=== PATIENT | male | born 1980 | race Caucasian/White ===

== ENCOUNTER 2019-03-28 11:50 | Inpatient (IN) ==
[2019-03-28] MEDS ORDERED: ROCURONIUM 100 MG/10 ML VIAL IV ONE ×2 (11:57→13:23)
[2019-03-28] MEDS ORDERED: ETOMIDATE 20 MG/10 ML VIAL IV ONE ×2 (11:57→13:23)
[2019-03-28] MEDS ORDERED: SODIUM CHLORIDE 0.9% 1,000 ML IV STA (12:03)
[2019-03-28 12:18] LABS: ABG Base Excess -6.9 MMOL/L (-2.5-2.5); ABG HCO3 18.8 MMOL/L (20-26); ABG Oxygen Saturation 91.3 % (95-100); ABG PCO2 43.9 MM HG (35-48); ABG PH 7.269 (7.35-7.45); ABG TCO2 17.7 MMOL/L (23-27)
[2019-03-28 12:24] LABS: Basophils # 0.1 10*3/uL (0.0-0.2); Basophils % 0.6 % (0.0-0.8); Eosinophils # 0.4 10*3/uL (0.0-0.87); Eosinophils % 1.9 % (0.00-10.9); Hematocrit 43.7 VOL% (42.0-52.0); Hemoglobin 14.1 GM/DL (14.0-18.0); Lymphocytes % 20.8 % (21.2-54.2); Mean Corpuscular HGB Conc 32.3 GM/DL (32-36); Mean Corpuscular Volume 98.9 FL (87-102); Mean Platelet Volume 9.3 FL (9.6-12.0); Monocytes % 5.7 % (1.7-12.7); Platelet Count 368 T/CUMM (130-400); Red Blood Count 4.42 MC/CUMM (3.8-5.5); Red Cell Distribution Width 12.1 % (9.3-17.3); White Blood Count 19.3 T/CUMM (4-12)
[2019-03-28 12:30] LABS: PT Patient Result 10.7 SECS (9.6-12.2); Partial Thromboplastin Time 25.9 SECS (20.8-36.0)
[2019-03-28] MEDS ORDERED: AMIODARONE INJ 450 MG in DEXTROSE 5% 241 ML IV SCH ×2 (12:30→20:30)
[2019-03-28] MEDS ORDERED: HEPARIN 5,000 UNIT/1 ML VIAL IV STA (12:43)
[2019-03-28] MEDS ORDERED: HEPARIN 5,000 UNIT/1 ML VIAL ONE ×2 (12:43→13:05)
[2019-03-28] MEDS ORDERED: LIDOCAINE 1% 20 ML VIAL ONE (12:44)
[2019-03-28 12:45] LABS: Alanine Aminotransferase 68 U/L (16-61); Albumin 3.7 G/DL (3.4-5.0); Alkaline Phosphatase 89 U/L (45-117); Aspartate Amino Transferase 94 U/L (0-37); Bilirubin,Total < 0.39 MG/DL (0.2-1.0); Blood Urea Nitrogen 10 MG/DL (7-18); Calcium 8.5 MG/DL (8.5-10.1); Estimated Glom Filtration Rate 82 ML/MIN; Glucose 281 MG/DL (74-106); Osmolality,Calculated 285.5 MOS/KG (273-304)
[2019-03-28] MEDS ORDERED: TIROFIBAN 5,000 MCG/100 ML PREMIX IV SCH (13:18)
[2019-03-28] MEDS ORDERED: FUROSEMIDE 40 MG/4 ML VIAL ONE (13:25)
[2019-03-28 13:27] LABS: Apearance,Urine CLEAR (Clear); Bacteria,Urine Occasional /HPF (Few); Bilirubin,Urine Negative (Negative); Blood, Urine Negative (Negative); Glucose,Urine (UA) >=500 mg/dL (Negative); Hyaline Casts,Urine 13 /LPF (0-3); Ketones,Urine Negative (Negative); Mucus,Urine Occasional /LPF (Occasional); Nitrite,Urine Negative (Negative); Protein,Urine 30 MG/DL; RBC,Urine 1 /HPF (0-4); Sperm,Urine Occasional /HPF (Negative); Squamous Epithelial Cell,Urine Occasional /HPF (0-10); Urine Color Yellow (Yellow); Urine Specific Gravity 1.014 (1.001-1.035); Urine Urobilinogen < 2.0 EU/DL (0.2-1.0); WBC,Urine 3 /HPF (0-6)
[2019-03-28 13:30] LABS: Barbiturates Screen,Urine Negative (Negative); Benzodiazepines Screen,Urine Positive (Negative); Cannabinoid Screen,Urine Negative (Negative); Opiate Screen,Urine Negative (Negative); Phencyclidine Screen,Urine Negative (Negative)
[2019-03-28] MEDS ORDERED: NITROGLYCERIN SL 0.4 MG TABLET SL PRN (13:43)
[2019-03-28] MEDS ORDERED: HYDROmorphone 2 MG/1 ML VIAL IV PRN (13:43)
[2019-03-28] MEDS ORDERED: ZALEPLON 5 MG CAPSULE PO PRN (13:43)
[2019-03-28] MEDS ORDERED: ONDANSETRON 4 MG/2 ML VIAL IV PRN (13:43)
[2019-03-28] MEDS ORDERED: ASPIRIN 325 MG TABLET ONE (13:49)
[2019-03-28] MEDS ORDERED: TICAGRELOR 90 MG TABLET ONE (13:49)
[2019-03-28] MEDS ORDERED: TICAGRELOR 90 MG TABLET PO ONE (14:33)
[2019-03-28] MEDS ORDERED: ASPIRIN 325 MG TABLET PO ONE (14:33)
[2019-03-28] MEDS ORDERED: MIDAZOLAM 2 MG/2 ML VIAL IV ONE (15:12)
[2019-03-28 15:14] LABS: INR 1.1
[2019-03-28] MEDS ORDERED: MIDAZOLAM 2 MG/2 ML VIAL ONE (15:15)
[2019-03-28 15:23] LABS: Partial Thromboplastin Time 88.8 SECS (20.8-36.0)
[2019-03-28 15:42] LABS: CKMB % 15.1 %
[2019-03-28 15:44] LABS: Troponin I 83.3 NG/ML (0.00-0.045)
[2019-03-28] MEDS: MIDAZOLAM 100 MG in SODIUM CHLORIDE 0.9% 80 ML IV PRN (15:54)
[2019-03-28] MEDS ORDERED: SODIUM CHLORIDE 0.9% 1,000 ML IV ONE ×2 (16:51→22:21)
[2019-03-28] MEDS: PHENYLEPHRINE DRIP 40 MG/250 ML PREMIX IV PRN (18:26)
[2019-03-28] MEDS ORDERED: INFLUENZA VIRUS VACCINE 0.5 ML SYRINGE IM ONE (19:54)
[2019-03-28] MEDS: TICAGRELOR 90 MG TABLET PO SCH (20:48)
[2019-03-28] MEDS ORDERED: LACTULOSE 20 GM/30 ML UDCUP NG ONE (22:08)
[2019-03-28] MEDS ORDERED: INSULIN REGULAR 100 UNIT/ML IV SCH (22:30)
[2019-03-28] MEDS: SODIUM BICARB INJ 50 MEQ in DEXTROSE 5% 1,000 ML IV SCH (22:40)
[2019-03-28] MEDS: MEROPENEM 1,000 MG in SODIUM CHLORIDE 0.9% 100 ML IV SCH (22:40)
[2019-03-29] MEDS: INSULIN REGULAR 100 UNIT/ML SUBCUT SCH ×4 (00:07→17:34)
[2019-03-29 00:59] LABS: ABG Base Excess -4.2 MMOL/L (-2.5-2.5); ABG HCO3 20.9 MMOL/L (20-26); ABG Oxygen Saturation 96.7 % (95-100); ABG PCO2 28.4 MM HG (35-48); ABG PH 7.428 (7.35-7.45); ABG PO2 80.4 MM HG (80-95); ABG TCO2 16.4 MMOL/L (23-27); Allen Test Positive; Pt O2 Delivery Device Ventilator
[2019-03-29 02:43] LABS: Basophils % 0.2 % (0.0-0.8); Hematocrit 38.1 VOL% (42.0-52.0); Hemoglobin 12.6 GM/DL (14.0-18.0); Immature Granulocytes % 0.6 %; Immature Granulocytes Absolute 0.13 #; Lymphocytes # 1.7 10*3/uL (1.4-4.0); Lymphocytes % 7.5 % (21.2-54.2); Mean Corpuscular HGB Conc 33.1 GM/DL (32-36); Mean Corpuscular Volume 96.2 FL (87-102); Mean Platelet Volume 9.4 FL (9.6-12.0); Monocytes % 7.6 % (1.7-12.7); Neutrophils % 84.1 % (38.7-73.9); Platelet Count 349 T/CUMM (130-400); Red Blood Count 3.96 MC/CUMM (3.8-5.5); Red Cell Distribution Width 12.3 % (9.3-17.3); White Blood Count 23.1 T/CUMM (4-12)
[2019-03-29 03:01] LABS: Albumin 2.9 G/DL (3.4-5.0); Bilirubin,Total 0.5 MG/DL (0.2-1.0); Calcium 7.4 MG/DL (8.5-10.1); Osmolality,Calculated 289.8 MOS/KG (273-304)
[2019-03-29 03:02] LABS: Risk Ratio 4.75; VLDL CHOLESTEROL 26.8 MG/DL
[2019-03-29] MEDS: ACETAMINOPHEN 325 MG TABLET PO PRN (03:21)
[2019-03-29 03:22] LABS: CKMB % 10.9 %
[2019-03-29 03:30] LABS: Troponin I > 200.000 NG/ML (0.00-0.045)
[2019-03-29 03:31] LABS: CKMB % 10.4 %; Troponin I > 200.000 NG/ML (0.00-0.045)
[2019-03-29 04:02] LABS: ABG Base Excess -3.7 MMOL/L (-2.5-2.5); ABG PCO2 27.8 MM HG (35-48); ABG PH 7.452 (7.35-7.45); ABG TCO2 19.8 MMOL/L (23-27); Allen Test Positive; Pt O2 Delivery Device Ventilator
[2019-03-29] MEDS: PHENYLEPHRINE DRIP 40 MG/250 ML PREMIX IV PRN ×2 (04:31→14:48)
[2019-03-29 04:41] LABS: Lymphocytes 7 % (20-55); Platelet Estimate Normal; Segmented Neutrophils 90 % (50-85); Total Cells Counted 100
[2019-03-29] MEDS: MEROPENEM 1,000 MG in SODIUM CHLORIDE 0.9% 100 ML IV SCH ×3 (06:00→21:28)
[2019-03-29] MEDS: SODIUM BICARB INJ 50 MEQ in DEXTROSE 5% 1,000 ML IV SCH ×2 (07:53→17:32)
[2019-03-29] MEDS: MIDAZOLAM 100 MG in SODIUM CHLORIDE 0.9% 80 ML IV PRN ×2 (07:59→22:43)
[2019-03-29] MEDS ORDERED: ASPIRIN EC 81 MG TABLET PO SCH (09:00)
[2019-03-29] MEDS: ROSUVASTATIN 20 MG TABLET PO SCH (09:04)
[2019-03-29] MEDS: ENOXAPARIN 40 MG/0.4 ML SYRINGE SUBCUT SCH (09:04)
[2019-03-29] MEDS: TICAGRELOR 90 MG TABLET PO SCH ×2 (09:04→20:02)
[2019-03-29 11:47] LABS: ABG Base Excess -0.5 MMOL/L (-2.5-2.5); ABG PCO2 31.7 MM HG (35-48); ABG PO2 97.2 MM HG (80-95); ABG TCO2 19.9 MMOL/L (23-27); Allen Test Positive; Pt O2 Delivery Device Ventilator
[2019-03-29] MEDS: NICOTINE 14 MG/24 HR PATCH TRANSDERM SCH (12:22)
[2019-03-29] MEDS: PANTOPRAZOLE 40 MG VIAL IV SCH (12:23)
[2019-03-29] MEDS: LACTULOSE 20 GM/30 ML UDCUP NG SCH ×2 (12:23→20:01)
[2019-03-29] MEDS: VANCOMYCIN INJ 1,500 MG in SODIUM CHLORIDE 0.9% 500 ML IV SCH (13:27)
[2019-03-29] MEDS ORDERED: FUROSEMIDE 40 MG/4 ML VIAL IV ONE (16:25)
[2019-03-29] MEDS ORDERED: ALBUTEROL/IPRATROPIUM 3 ML NEB RESP TX ONE (16:25)
[2019-03-29 18:12] LABS: ABG HCO3 26.2 MMOL/L (20-26); ABG Oxygen Saturation 97.9 % (95-100); ABG PCO2 35.8 MM HG (35-48); ABG PH 7.461 (7.35-7.45); ABG PO2 99.2 MM HG (80-95); ABG TCO2 22.4 MMOL/L (23-27); Allen Test Positive; Pt O2 Delivery Device Ventilator
[2019-03-29] MEDS: methylPREDNISolone SOD SUC 40 MG/1 ML VIAL IV SCH (20:01)
[2019-03-29] MEDS: BUDESONIDE 0.5 MG/2 ML NEB RESP TX SCH (20:10)
[2019-03-30] MEDS: INSULIN REGULAR 100 UNIT/ML SUBCUT SCH ×5 (00:04→23:30)
[2019-03-30] MEDS: VANCOMYCIN INJ 1,500 MG in SODIUM CHLORIDE 0.9% 500 ML IV SCH ×2 (01:26→13:44)
[2019-03-30 03:09] LABS: Allen Test Positive; Pt O2 Delivery Device Ventilator
[2019-03-30 03:11] LABS: ABG Base Excess 1.3 MMOL/L (-2.5-2.5); ABG HCO3 25.4 MMOL/L (20-26); ABG Oxygen Saturation 85.3 % (95-100); ABG PCO2 47.5 MM HG (35-48); ABG PH 7.366 (7.35-7.45); ABG PO2 51.6 MM HG (80-95); ABG TCO2 24.7 MMOL/L (23-27)
[2019-03-30] MEDS: SODIUM BICARB INJ 50 MEQ in DEXTROSE 5% 1,000 ML IV SCH ×2 (04:57→16:08)
[2019-03-30 05:03] LABS: Basophils % 0.1 % (0.0-0.8); Hematocrit 31.9 VOL% (42.0-52.0); Hemoglobin 10.8 GM/DL (14.0-18.0); Immature Granulocytes % 0.9 %; Lymphocytes # 0.8 10*3/uL (1.4-4.0); Lymphocytes % 3.9 % (21.2-54.2); Mean Corpuscular HGB Conc 33.9 GM/DL (32-36); Mean Corpuscular Volume 95.5 FL (87-102); Mean Platelet Volume 9.9 FL (9.6-12.0); Monocytes % 5.1 % (1.7-12.7); Platelet Count 266 T/CUMM (130-400); Red Blood Count 3.34 MC/CUMM (3.8-5.5); Red Cell Distribution Width 12.3 % (9.3-17.3); White Blood Count 21.1 T/CUMM (4-12)
[2019-03-30 05:25] LABS: Albumin 2.7 G/DL (3.4-5.0); Bilirubin,Total 0.5 MG/DL (0.2-1.0); Calcium 7.5 MG/DL (8.5-10.1); Osmolality,Calculated 279.5 MOS/KG (273-304); Total Protein 5.9 G/DL (6.4-8.3)
[2019-03-30 05:40] LABS: Band Neutrophils 1 % (0-10); Lymphocytes 5 % (20-55); Platelet Estimate Normal; Segmented Neutrophils 89 % (50-85); Total Cells Counted 100
[2019-03-30] MEDS: MEROPENEM 1,000 MG in SODIUM CHLORIDE 0.9% 100 ML IV SCH (07:11)
[2019-03-30] MEDS: BUDESONIDE 0.5 MG/2 ML NEB RESP TX SCH ×2 (07:15→19:40)
[2019-03-30] MEDS: methylPREDNISolone SOD SUC 40 MG/1 ML VIAL IV SCH ×2 (08:57→20:24)
[2019-03-30] MEDS: ROSUVASTATIN 20 MG TABLET PO SCH (08:57)
[2019-03-30] MEDS: ENOXAPARIN 40 MG/0.4 ML SYRINGE SUBCUT SCH (08:57)
[2019-03-30] MEDS: LACTULOSE 20 GM/30 ML UDCUP NG SCH ×3 (08:57→21:23)
[2019-03-30] MEDS: ASPIRIN CHEW 81 MG TABLET PO SCH (08:58)
[2019-03-30] MEDS: NICOTINE 14 MG/24 HR PATCH TRANSDERM SCH (08:58)
[2019-03-30] MEDS: TICAGRELOR 90 MG TABLET PO SCH ×2 (08:58→20:24)
[2019-03-30] MEDS: PANTOPRAZOLE 40 MG VIAL IV SCH (08:59)
[2019-03-30] MEDS: PHENYLEPHRINE DRIP 40 MG/250 ML PREMIX IV PRN (10:43)
[2019-03-30] MEDS: MIDAZOLAM 100 MG in SODIUM CHLORIDE 0.9% 80 ML IV PRN (12:38)
[2019-03-30] MEDS: MEROPENEM 500 MG in SODIUM CHLORIDE 0.9% 100 ML IV SCH ×3 (13:43→23:30)
[2019-03-30 14:56] LABS: ABG Base Excess 1.2 MMOL/L (-2.5-2.5); ABG HCO3 25.5 MMOL/L (20-26); ABG Oxygen Saturation 99.5 % (95-100); ABG PCO2 44.2 MM HG (35-48); ABG PH 7.387 (7.35-7.45); ABG TCO2 23.8 MMOL/L (23-27); Allen Test Positive; Pt O2 Delivery Device Ventilator
[2019-03-30 16:31] LABS: ABG Base Excess 1.6 MMOL/L (-2.5-2.5); ABG HCO3 25.7 MMOL/L (20-26); ABG Oxygen Saturation 90.8 % (95-100); ABG PCO2 44.2 MM HG (35-48); ABG PH 7.392 (7.35-7.45); ABG PO2 61.4 MM HG (80-95); ABG TCO2 24.2 MMOL/L (23-27); Allen Test Positive; Pt O2 Delivery Device Ventilator
[2019-03-30] MEDS: ACETYLCYSTEINE 20% 800 MG/4 ML VIAL RESP TX SCH (19:40)
[2019-03-31] MEDS: VANCOMYCIN INJ 1,500 MG in SODIUM CHLORIDE 0.9% 500 ML IV SCH ×2 (01:10→13:50)
[2019-03-31] MEDS: ACETYLCYSTEINE 20% 800 MG/4 ML VIAL RESP TX SCH ×4 (01:35→20:11)
[2019-03-31] MEDS: ALBUTEROL/IPRATROPIUM 3 ML NEB RESP TX PRN ×2 (01:35→13:39)
[2019-03-31] MEDS: SODIUM BICARB INJ 50 MEQ in DEXTROSE 5% 1,000 ML IV SCH (02:06)
[2019-03-31] MEDS: MIDAZOLAM 100 MG in SODIUM CHLORIDE 0.9% 80 ML IV PRN ×2 (02:26→17:05)
[2019-03-31 03:05] LABS: ABG Base Excess 4.2 MMOL/L (-2.5-2.5); ABG HCO3 28.2 MMOL/L (20-26); ABG Oxygen Saturation 95.7 % (95-100); ABG PCO2 41.5 MM HG (35-48); ABG PH 7.447 (7.35-7.45); ABG PO2 76.7 MM HG (80-95); ABG TCO2 25.6 MMOL/L (23-27); Allen Test Positive; Pt O2 Delivery Device Ventilator
[2019-03-31] MEDS: MEROPENEM 500 MG in SODIUM CHLORIDE 0.9% 100 ML IV SCH ×3 (05:10→18:39)
[2019-03-31 05:15] LABS: Basophils % 0.1 % (0.0-0.8); Hematocrit 31.6 VOL% (42.0-52.0); Hemoglobin 10.4 GM/DL (14.0-18.0); Immature Granulocytes % 0.9 %; Immature Granulocytes Absolute 0.19 #; Lymphocytes # 0.8 10*3/uL (1.4-4.0); Lymphocytes % 3.7 % (21.2-54.2); Mean Corpuscular HGB Conc 32.9 GM/DL (32-36); Mean Corpuscular Volume 96.6 FL (87-102); Mean Platelet Volume 9.9 FL (9.6-12.0); Neutrophils % 90.3 % (38.7-73.9); Platelet Count 264 T/CUMM (130-400); Red Blood Count 3.27 MC/CUMM (3.8-5.5); White Blood Count 22.2 T/CUMM (4-12)
[2019-03-31 05:33] LABS: Albumin 2.6 G/DL (3.4-5.0); Bilirubin,Total 0.7 MG/DL (0.2-1.0); Calcium 8.4 MG/DL (8.5-10.1); Osmolality,Calculated 290.7 MOS/KG (273-304); Total Protein 6.1 G/DL (6.4-8.3)
[2019-03-31 05:37] LABS: Hypochromasia 1+; Lymphocytes 3 % (20-55); Platelet Estimate Adequate; Segmented Neutrophils 93 % (50-85); Total Cells Counted 100
[2019-03-31] MEDS: INSULIN REGULAR 100 UNIT/ML SUBCUT SCH ×3 (05:50→18:39)
[2019-03-31] MEDS: BUDESONIDE 0.5 MG/2 ML NEB RESP TX SCH ×2 (07:32→20:11)
[2019-03-31] MEDS: methylPREDNISolone SOD SUC 40 MG/1 ML VIAL IV SCH (08:43)
[2019-03-31] MEDS: LACTULOSE 20 GM/30 ML UDCUP NG SCH ×4 (09:08→20:42)
[2019-03-31] MEDS: ROSUVASTATIN 20 MG TABLET PO SCH (09:10)
[2019-03-31] MEDS: TICAGRELOR 90 MG TABLET PO SCH (09:10)
[2019-03-31] MEDS: ASPIRIN CHEW 81 MG TABLET PO SCH (09:10)
[2019-03-31] MEDS: ENOXAPARIN 40 MG/0.4 ML SYRINGE SUBCUT SCH (09:11)
[2019-03-31] MEDS: NICOTINE 14 MG/24 HR PATCH TRANSDERM SCH (09:11)
[2019-03-31] MEDS: PANTOPRAZOLE 40 MG VIAL IV SCH (09:16)
[2019-03-31] MEDS: DEXMEDETOMIDINE 200 MCG in SODIUM CHLORIDE 0.9% 48 ML IV PRN ×2 (09:28→13:10)
[2019-03-31] MEDS: DEXMEDETOMIDINE 400 MCG in SODIUM CHLORIDE 0.9% 96 ML IV PRN (16:25)
[2019-03-31] MEDS: VANCOMYCIN INJ 1,250 MG in SODIUM CHLORIDE 0.9% 250 ML IV SCH (20:42)
[2019-03-31] MEDS: PHENYLEPHRINE DRIP 40 MG/250 ML PREMIX IV PRN (20:58)
[2019-04-01] MEDS: ACETYLCYSTEINE 20% 800 MG/4 ML VIAL RESP TX SCH ×4 (00:17→21:02)
[2019-04-01] MEDS: DEXMEDETOMIDINE 400 MCG in SODIUM CHLORIDE 0.9% 96 ML IV PRN ×3 (00:24→20:40)
[2019-04-01] MEDS: MEROPENEM 500 MG in SODIUM CHLORIDE 0.9% 100 ML IV SCH (01:00)
[2019-04-01] MEDS: LEVOFLOXACIN INJ 500 MG in PREMIX 1 EACH IV SCH (01:40)
[2019-04-01] MEDS: INSULIN REGULAR 100 UNIT/ML SUBCUT SCH ×4 (03:31→17:15)
[2019-04-01] MEDS: MIDAZOLAM 100 MG in SODIUM CHLORIDE 0.9% 80 ML IV PRN ×2 (04:20→17:11)
[2019-04-01 04:33] LABS: ABG Base Excess 4.9 MMOL/L (-2.5-2.5); ABG HCO3 28.8 MMOL/L (20-26); ABG Oxygen Saturation 98.7 % (95-100); ABG PH 7.492 (7.35-7.45); ABG TCO2 25.4 MMOL/L (23-27); Allen Test Positive; Pt O2 Delivery Device Ventilator
[2019-04-01] MEDS: ACETAMINOPHEN 325 MG TABLET PO PRN (05:48)
[2019-04-01] MEDS: VANCOMYCIN INJ 1,250 MG in SODIUM CHLORIDE 0.9% 250 ML IV SCH (05:56)
[2019-04-01 06:23] LABS: Basophils % 0.2 % (0.0-0.8); Eosinophils # 0.1 10*3/uL (0.0-0.87); Eosinophils % 0.9 % (0.00-10.9); Hematocrit 30.6 VOL% (42.0-52.0); Hemoglobin 10.2 GM/DL (14.0-18.0); Immature Granulocytes % 0.6 %; Lymphocytes # 1.8 10*3/uL (1.4-4.0); Mean Corpuscular HGB Conc 33.3 GM/DL (32-36); Mean Corpuscular Volume 94.7 FL (87-102); Mean Platelet Volume 9.8 FL (9.6-12.0); Monocytes % 8.5 % (1.7-12.7); Neutrophils % 78.8 % (38.7-73.9); Platelet Count 289 T/CUMM (130-400); Red Blood Count 3.23 MC/CUMM (3.8-5.5); Red Cell Distribution Width 12.2 % (9.3-17.3); White Blood Count 16.4 T/CUMM (4-12)
[2019-04-01 06:52] LABS: Albumin 2.4 G/DL (3.4-5.0); Bilirubin,Total 0.8 MG/DL (0.2-1.0); Calcium 7.9 MG/DL (8.5-10.1); Osmolality,Calculated 296.3 MOS/KG (273-304); Total Protein 5.8 G/DL (6.4-8.3)
[2019-04-01] MEDS: BUDESONIDE 0.5 MG/2 ML NEB RESP TX SCH ×2 (07:22→21:02)
[2019-04-01 09:50] LABS: ABG Base Excess 4.9 MMOL/L (-2.5-2.5); ABG HCO3 28.8 MMOL/L (20-26); ABG Oxygen Saturation 97.9 % (95-100); ABG PCO2 37.4 MM HG (35-48); ABG PH 7.488 (7.35-7.45); ABG PO2 95.8 MM HG (80-95); ABG TCO2 25.2 MMOL/L (23-27)
[2019-04-01 09:52] LABS: Allen Test Positive; Pt O2 Delivery Device Ventilator
[2019-04-01] MEDS: PANTOPRAZOLE 40 MG VIAL IV SCH (11:30)
[2019-04-01] MEDS: ROSUVASTATIN 20 MG TABLET PO SCH (11:30)
[2019-04-01] MEDS: LACTULOSE 20 GM/30 ML UDCUP NG SCH ×4 (11:31→20:19)
[2019-04-01] MEDS ORDERED: ROCURONIUM 100 MG/10 ML VIAL IV ONE ×2 (13:30→13:32)
[2019-04-01] MEDS: ALBUTEROL/IPRATROPIUM 3 ML NEB RESP TX PRN (14:44)
[2019-04-01] MEDS: POTASSIUM CHLORIDE 20 MEQ/15 ML UDCUP PER TUBE PRN ×4 (16:50→22:29)
[2019-04-01] MEDS: TICAGRELOR 90 MG TABLET PO SCH (20:20)
[2019-04-02] MEDS: LEVOFLOXACIN INJ 500 MG in PREMIX 1 EACH IV SCH (00:02)
[2019-04-02] MEDS: INSULIN REGULAR 100 UNIT/ML SUBCUT SCH ×4 (00:04→17:40)
[2019-04-02] MEDS: ACETYLCYSTEINE 20% 800 MG/4 ML VIAL RESP TX SCH ×4 (01:31→20:43)
[2019-04-02] MEDS: DEXMEDETOMIDINE 400 MCG in SODIUM CHLORIDE 0.9% 96 ML IV PRN ×3 (02:30→17:05)
[2019-04-02 04:15] LABS: ABG HCO3 27.1 MMOL/L (20-26); ABG Oxygen Saturation 98.4 % (95-100); ABG PCO2 35.5 MM HG (35-48); Allen Test Positive; Pt O2 Delivery Device Ventilator
[2019-04-02 05:16] LABS: Basophils % 0.4 % (0.0-0.8); Eosinophils # 0.3 10*3/uL (0.0-0.87); Eosinophils % 3.1 % (0.00-10.9); Hemoglobin 9.6 GM/DL (14.0-18.0); Immature Granulocytes % 0.5 %; Immature Granulocytes Absolute 0.06 #; Lymphocytes # 1.5 10*3/uL (1.4-4.0); Lymphocytes % 13.4 % (21.2-54.2); Mean Corpuscular HGB Conc 33.1 GM/DL (32-36); Mean Corpuscular Volume 96.3 FL (87-102); Mean Platelet Volume 9.8 FL (9.6-12.0); Monocytes % 8.9 % (1.7-12.7); Neutrophils % 73.7 % (38.7-73.9); Platelet Count 277 T/CUMM (130-400); Red Blood Count 3.01 MC/CUMM (3.8-5.5); Red Cell Distribution Width 12.2 % (9.3-17.3)
[2019-04-02 05:42] LABS: Calcium 8.2 MG/DL (8.5-10.1); Osmolality,Calculated 290.8 MOS/KG (273-304)
[2019-04-02] MEDS: POTASSIUM CHLORIDE 20 MEQ/15 ML UDCUP PER TUBE PRN ×2 (06:00→08:05)
[2019-04-02] MEDS: MIDAZOLAM 100 MG in SODIUM CHLORIDE 0.9% 80 ML IV PRN (06:39)
[2019-04-02] MEDS: BUDESONIDE 0.5 MG/2 ML NEB RESP TX SCH ×2 (07:48→20:43)
[2019-04-02] MEDS: ENOXAPARIN 40 MG/0.4 ML SYRINGE SUBCUT SCH (08:04)
[2019-04-02] MEDS: LACTULOSE 20 GM/30 ML UDCUP NG SCH ×4 (08:04→21:04)
[2019-04-02] MEDS: ROSUVASTATIN 20 MG TABLET PO SCH (08:04)
[2019-04-02] MEDS: ASPIRIN CHEW 81 MG TABLET PO SCH (08:04)
[2019-04-02] MEDS: TICAGRELOR 90 MG TABLET PO SCH ×2 (08:04→21:04)
[2019-04-02] MEDS: PANTOPRAZOLE 40 MG VIAL IV SCH (08:05)
[2019-04-02] MEDS ORDERED: HALOPERIDOL 5 MG/ML AMP IV ONE (09:31)
[2019-04-02] MEDS ORDERED: THIAMINE 200 MG/2 ML VIAL IV ONE (14:17)
[2019-04-02] MEDS ORDERED: chlordiazePOXIDE 25 MG CAPSULE PO PRN (14:21)
[2019-04-02] MEDS ORDERED: LORazepam 2 MG/1 ML VIAL IV PRN (14:21)
[2019-04-02] MEDS ORDERED: THIAMINE INJ 500 MG in SODIUM CHLORIDE 0.9% 100 ML IV ONE (15:00)
[2019-04-02] MEDS: FOLIC ACID 1 MG TABLET PO SCH (16:41)
[2019-04-02] MEDS: MULTIVITAMIN (CENTRUM) TABLET PO SCH (16:41)
[2019-04-02] MEDS: NICOTINE 14 MG/24 HR PATCH TRANSDERM SCH (16:41)
[2019-04-02] MEDS: QUEtiapine 25 MG TABLET PO SCH (21:04)
[2019-04-02] MEDS: ACETAMINOPHEN 325 MG TABLET PO PRN (21:35)
[2019-04-03] MEDS: MIDAZOLAM 100 MG in SODIUM CHLORIDE 0.9% 80 ML IV PRN ×3 (00:04→23:43)
[2019-04-03] MEDS: DEXMEDETOMIDINE 400 MCG in SODIUM CHLORIDE 0.9% 96 ML IV PRN ×4 (00:21→23:19)
[2019-04-03] MEDS: INSULIN REGULAR 100 UNIT/ML SUBCUT SCH ×4 (00:56→19:01)
[2019-04-03] MEDS: LEVOFLOXACIN INJ 500 MG in PREMIX 1 EACH IV SCH (01:00)
[2019-04-03] MEDS: ACETYLCYSTEINE 20% 800 MG/4 ML VIAL RESP TX SCH ×4 (01:35→19:31)
[2019-04-03 04:14] LABS: ABG Base Excess 1.6 MMOL/L (-2.5-2.5); ABG HCO3 25.8 MMOL/L (20-26); ABG Oxygen Saturation 95.6 % (95-100); ABG PCO2 35.4 MM HG (35-48); ABG PO2 74.3 MM HG (80-95); ABG TCO2 22.3 MMOL/L (23-27); Pt O2 Delivery Device Ventilator
[2019-04-03 05:58] LABS: Basophils # 0.1 10*3/uL (0.0-0.2); Basophils % 0.4 % (0.0-0.8); Eosinophils # 0.7 10*3/uL (0.0-0.87); Eosinophils % 5.1 % (0.00-10.9); Hemoglobin 10.1 GM/DL (14.0-18.0); Immature Granulocytes % 0.6 %; Immature Granulocytes Absolute 0.09 #; Lymphocytes # 2.2 10*3/uL (1.4-4.0); Lymphocytes % 15.3 % (21.2-54.2); Mean Corpuscular HGB Conc 32.6 GM/DL (32-36); Mean Corpuscular Volume 96.9 FL (87-102); Monocytes % 7.1 % (1.7-12.7); Neutrophils % 71.5 % (38.7-73.9); Platelet Count 300 T/CUMM (130-400); Red Cell Distribution Width 12.4 % (9.3-17.3); White Blood Count 14.1 T/CUMM (4-12)
[2019-04-03 06:19] LABS: Calcium 8.5 MG/DL (8.5-10.1); Osmolality,Calculated 291.8 MOS/KG (273-304)
[2019-04-03 06:24] LABS: Prealbumin 12.8 MG/DL (20-40)
[2019-04-03] MEDS: POTASSIUM CHLORIDE 20 MEQ/15 ML UDCUP PER TUBE PRN (06:27)
[2019-04-03] MEDS: BUDESONIDE 0.5 MG/2 ML NEB RESP TX SCH ×2 (08:12→19:31)
[2019-04-03] MEDS: FOLIC ACID 1 MG TABLET PO SCH (08:31)
[2019-04-03] MEDS: NICOTINE 14 MG/24 HR PATCH TRANSDERM SCH (08:31)
[2019-04-03] MEDS: TICAGRELOR 90 MG TABLET PO SCH ×2 (08:32→21:24)
[2019-04-03] MEDS: MULTIVITAMIN (CENTRUM) TABLET PO SCH (08:32)
[2019-04-03] MEDS: ROSUVASTATIN 20 MG TABLET PO SCH (08:32)
[2019-04-03] MEDS: THIAMINE 100 MG TABLET PO SCH (08:32)
[2019-04-03] MEDS: ASPIRIN CHEW 81 MG TABLET PO SCH (08:33)
[2019-04-03] MEDS: LACTULOSE 20 GM/30 ML UDCUP NG SCH ×4 (08:33→21:25)
[2019-04-03] MEDS: ENOXAPARIN 40 MG/0.4 ML SYRINGE SUBCUT SCH (08:33)
[2019-04-03] MEDS: PANTOPRAZOLE 40 MG VIAL IV SCH (08:34)
[2019-04-03] MEDS: QUEtiapine 25 MG TABLET PO SCH ×2 (08:34→21:25)
[2019-04-04] MEDS: ACETYLCYSTEINE 20% 800 MG/4 ML VIAL RESP TX SCH ×2 (00:42→07:35)
[2019-04-04] MEDS: INSULIN REGULAR 100 UNIT/ML SUBCUT SCH ×4 (01:13→18:24)
[2019-04-04] MEDS: METOPROLOL TARTRATE 25 MG TABLET PO SCH ×3 (01:16→21:23)
[2019-04-04] MEDS: LEVOFLOXACIN INJ 500 MG in PREMIX 1 EACH IV SCH (01:31)
[2019-04-04 03:08] LABS: ABG Base Excess 0.3 MMOL/L (-2.5-2.5); ABG HCO3 23.8 MMOL/L (20-26); ABG Oxygen Saturation 96.5 % (95-100); ABG PCO2 34.5 MM HG (35-48); ABG PH 7.456 (7.35-7.45); ABG PO2 89.2 MM HG (80-95); ABG TCO2 24.8 MMOL/L (23-27); Allen Test Positive; Pt O2 Delivery Device Ventilator
[2019-04-04 05:38] LABS: Basophils % 0.3 % (0.0-0.8); Eosinophils % 7.5 % (0.00-10.9); Hematocrit 31.3 VOL% (42.0-52.0); Hemoglobin 10.4 GM/DL (14.0-18.0); Immature Granulocytes % 0.8 %; Lymphocytes % 14.9 % (21.2-54.2); Mean Corpuscular HGB Conc 33.2 GM/DL (32-36); Mean Corpuscular Volume 95.1 FL (87-102); Mean Platelet Volume 9.6 FL (9.6-12.0); Monocytes % 8.9 % (1.7-12.7); Neutrophils % 67.6 % (38.7-73.9); Platelet Count 356 T/CUMM (130-400); Red Blood Count 3.29 MC/CUMM (3.8-5.5); Red Cell Distribution Width 11.9 % (9.3-17.3); White Blood Count 13.1 T/CUMM (4-12)
[2019-04-04 05:45] LABS: Calcium 8.2 MG/DL (8.5-10.1)
[2019-04-04] MEDS: BUDESONIDE 0.5 MG/2 ML NEB RESP TX SCH ×2 (07:35→19:18)
[2019-04-04] MEDS: DEXMEDETOMIDINE 400 MCG in SODIUM CHLORIDE 0.9% 96 ML IV PRN ×3 (07:44→21:03)
[2019-04-04] MEDS: FOLIC ACID 1 MG TABLET PO SCH (08:37)
[2019-04-04] MEDS: ASPIRIN CHEW 81 MG TABLET PO SCH (08:38)
[2019-04-04] MEDS: THIAMINE 100 MG TABLET PO SCH (08:38)
[2019-04-04] MEDS: MULTIVITAMIN (CENTRUM) TABLET PO SCH (08:38)
[2019-04-04] MEDS: QUEtiapine 25 MG TABLET PO SCH ×2 (08:38→21:23)
[2019-04-04] MEDS: NICOTINE 14 MG/24 HR PATCH TRANSDERM SCH (08:38)
[2019-04-04] MEDS: TICAGRELOR 90 MG TABLET PO SCH ×2 (08:38→21:23)
[2019-04-04] MEDS: ROSUVASTATIN 20 MG TABLET PO SCH (08:38)
[2019-04-04] MEDS: ENOXAPARIN 40 MG/0.4 ML SYRINGE SUBCUT SCH (08:39)
[2019-04-04] MEDS ORDERED: FUROSEMIDE 40 MG/4 ML VIAL IV ONE (08:39)
[2019-04-04] MEDS: LACTULOSE 20 GM/30 ML UDCUP NG SCH ×4 (08:39→21:24)
[2019-04-04] MEDS: PANTOPRAZOLE 40 MG VIAL IV SCH (08:41)
[2019-04-04] MEDS: MIDAZOLAM 100 MG in SODIUM CHLORIDE 0.9% 80 ML IV PRN (17:06)
[2019-04-05] MEDS: LEVOFLOXACIN INJ 500 MG in PREMIX 1 EACH IV SCH (00:44)
[2019-04-05] MEDS: INSULIN REGULAR 100 UNIT/ML SUBCUT SCH ×4 (00:46→18:40)
[2019-04-05 02:49] LABS: ABG Base Excess 2.1 MMOL/L (-2.5-2.5); ABG HCO3 26.2 MMOL/L (20-26); ABG Oxygen Saturation 96.9 % (95-100); ABG PCO2 36.2 MM HG (35-48); ABG PH 7.459 (7.35-7.45); ABG PO2 89.3 MM HG (80-95); ABG TCO2 22.8 MMOL/L (23-27); Allen Test Positive; Pt O2 Delivery Device Ventilator
[2019-04-05] MEDS: DEXMEDETOMIDINE 400 MCG in SODIUM CHLORIDE 0.9% 96 ML IV PRN ×4 (03:39→23:06)
[2019-04-05 06:10] LABS: Basophils # 0.1 10*3/uL (0.0-0.2); Basophils % 0.5 % (0.0-0.8); Eosinophils % 7.2 % (0.00-10.9); Hematocrit 35.7 VOL% (42.0-52.0); Hemoglobin 11.6 GM/DL (14.0-18.0); Immature Granulocytes % 1.3 %; Immature Granulocytes Absolute 0.17 #; Lymphocytes # 1.7 10*3/uL (1.4-4.0); Lymphocytes % 12.5 % (21.2-54.2); Mean Corpuscular HGB Conc 32.5 GM/DL (32-36); Mean Platelet Volume 9.8 FL (9.6-12.0); Monocytes % 9.8 % (1.7-12.7); Neutrophils % 68.7 % (38.7-73.9); Platelet Count 441 T/CUMM (130-400); Red Blood Count 3.72 MC/CUMM (3.8-5.5); Red Cell Distribution Width 11.9 % (9.3-17.3); White Blood Count 13.4 T/CUMM (4-12)
[2019-04-05 06:28] LABS: Calcium 8.7 MG/DL (8.5-10.1); Osmolality,Calculated 282.4 MOS/KG (273-304)
[2019-04-05] MEDS: BUDESONIDE 0.5 MG/2 ML NEB RESP TX SCH ×2 (07:45→20:10)
[2019-04-05] MEDS: LOSARTAN 25 MG TABLET PO SCH (08:02)
[2019-04-05] MEDS: METOPROLOL TARTRATE 25 MG TABLET PO SCH (08:04)
[2019-04-05] MEDS ORDERED: methylPREDNISolone SOD SUC 125 MG/2 ML VIAL IV ONE (08:06)
[2019-04-05] MEDS: QUEtiapine 25 MG TABLET PO SCH ×2 (08:12→20:36)
[2019-04-05] MEDS: ASPIRIN CHEW 81 MG TABLET PO SCH (08:12)
[2019-04-05] MEDS: ROSUVASTATIN 20 MG TABLET PO SCH (08:12)
[2019-04-05] MEDS: FOLIC ACID 1 MG TABLET PO SCH (08:12)
[2019-04-05] MEDS: LACTULOSE 20 GM/30 ML UDCUP NG SCH ×4 (08:12→20:36)
[2019-04-05] MEDS: PANTOPRAZOLE 40 MG VIAL IV SCH (08:12)
[2019-04-05] MEDS: MULTIVITAMIN (CENTRUM) TABLET PO SCH (08:12)
[2019-04-05] MEDS: THIAMINE 100 MG TABLET PO SCH (08:12)
[2019-04-05] MEDS: NICOTINE 14 MG/24 HR PATCH TRANSDERM SCH (08:13)
[2019-04-05] MEDS: TICAGRELOR 90 MG TABLET PO SCH ×2 (08:13→20:36)
[2019-04-05] MEDS: ENOXAPARIN 40 MG/0.4 ML SYRINGE SUBCUT SCH (08:13)
[2019-04-05] MEDS: MIDAZOLAM 100 MG in SODIUM CHLORIDE 0.9% 80 ML IV PRN (13:16)
[2019-04-05] MEDS: ALBUTEROL/IPRATROPIUM 3 ML NEB RESP TX PRN ×2 (13:41→20:10)
[2019-04-05] MEDS ORDERED: FUROSEMIDE 40 MG/4 ML VIAL ONE (14:01)
[2019-04-05] MEDS ORDERED: FUROSEMIDE 40 MG/4 ML VIAL IV ONE (14:01)
[2019-04-06] MEDS: INSULIN REGULAR 100 UNIT/ML SUBCUT SCH ×4 (00:40→17:35)
[2019-04-06] MEDS: LEVOFLOXACIN INJ 500 MG in PREMIX 1 EACH IV SCH (00:42)
[2019-04-06] MEDS: MIDAZOLAM 100 MG in SODIUM CHLORIDE 0.9% 80 ML IV PRN (02:50)
[2019-04-06 04:15] LABS: ABG Base Excess 1.1 MMOL/L (-2.5-2.5); ABG HCO3 25.4 MMOL/L (20-26); ABG Oxygen Saturation 99.1 % (95-100); ABG PCO2 41.3 MM HG (35-48); ABG PH 7.405 (7.35-7.45); ABG TCO2 23.1 MMOL/L (23-27); Pt O2 Delivery Device Ventilator
[2019-04-06 04:59] LABS: Basophils % 0.3 % (0.0-0.8); Eosinophils # 0.1 10*3/uL (0.0-0.87); Eosinophils % 0.7 % (0.00-10.9); Hemoglobin 11.3 GM/DL (14.0-18.0); Immature Granulocytes % 1.8 %; Immature Granulocytes Absolute 0.25 #; Lymphocytes # 2.1 10*3/uL (1.4-4.0); Lymphocytes % 15.4 % (21.2-54.2); Mean Corpuscular HGB Conc 33.2 GM/DL (32-36); Mean Corpuscular Volume 94.4 FL (87-102); Mean Platelet Volume 9.3 FL (9.6-12.0); Neutrophils % 71.8 % (38.7-73.9); Platelet Count 478 T/CUMM (130-400); Red Cell Distribution Width 11.7 % (9.3-17.3); White Blood Count 13.7 T/CUMM (4-12)
[2019-04-06 05:18] LABS: Calcium 8.6 MG/DL (8.5-10.1); Osmolality,Calculated 290.3 MOS/KG (273-304)
[2019-04-06 05:25] LABS: Prealbumin 19.8 MG/DL (20-40)
[2019-04-06] MEDS: DEXMEDETOMIDINE 400 MCG in SODIUM CHLORIDE 0.9% 96 ML IV PRN (06:04)
[2019-04-06] MEDS: BUDESONIDE 0.5 MG/2 ML NEB RESP TX SCH ×2 (07:40→19:55)
[2019-04-06] MEDS: THIAMINE 100 MG TABLET PO SCH (08:15)
[2019-04-06] MEDS: ROSUVASTATIN 20 MG TABLET PO SCH (08:15)
[2019-04-06] MEDS: PANTOPRAZOLE 40 MG VIAL IV SCH (08:16)
[2019-04-06] MEDS: ASPIRIN CHEW 81 MG TABLET PO SCH (08:16)
[2019-04-06] MEDS: NICOTINE 14 MG/24 HR PATCH TRANSDERM SCH (08:16)
[2019-04-06] MEDS: FOLIC ACID 1 MG TABLET PO SCH (08:16)
[2019-04-06] MEDS: LACTULOSE 20 GM/30 ML UDCUP NG SCH ×4 (08:16→20:42)
[2019-04-06] MEDS: QUEtiapine 25 MG TABLET PO SCH ×2 (08:16→20:41)
[2019-04-06] MEDS: ENOXAPARIN 40 MG/0.4 ML SYRINGE SUBCUT SCH (08:16)
[2019-04-06] MEDS: TICAGRELOR 90 MG TABLET PO SCH ×2 (08:16→20:41)
[2019-04-06] MEDS: MULTIVITAMIN (CENTRUM) TABLET PO SCH (08:16)
[2019-04-06] MEDS: METOPROLOL TARTRATE 25 MG TABLET PO SCH ×2 (14:15→20:41)
[2019-04-06] MEDS: ACETAMINOPHEN 325 MG TABLET PO PRN (17:30)
[2019-04-07] MEDS: INSULIN REGULAR 100 UNIT/ML SUBCUT SCH ×2 (00:08→05:30)
[2019-04-07] MEDS: LEVOFLOXACIN INJ 500 MG in PREMIX 1 EACH IV SCH (00:10)
[2019-04-07] MEDS: ACETAMINOPHEN 325 MG TABLET PO PRN (02:19)
[2019-04-07 04:23] LABS: Calcium 8.6 MG/DL (8.5-10.1); Osmolality,Calculated 281.4 MOS/KG (273-304)
[2019-04-07 04:28] LABS: Albumin 2.8 G/DL (3.4-5.0); Bilirubin,Direct 0.14 MG/DL (0.0-0.20); Bilirubin,Indirect 1.1 MG/DL (0.0-1.0); Bilirubin,Total 1.2 MG/DL (0.2-1.0); Total Protein 6.7 G/DL (6.4-8.3)
[2019-04-07 04:32] LABS: Basophils # 0.1 10*3/uL (0.0-0.2); Basophils % 0.5 % (0.0-0.8); Eosinophils # 0.1 10*3/uL (0.0-0.87); Eosinophils % 0.4 % (0.00-10.9); Hematocrit 35.7 VOL% (42.0-52.0); Hemoglobin 11.8 GM/DL (14.0-18.0); Immature Granulocytes Absolute 0.25 #; Lymphocytes # 3.3 10*3/uL (1.4-4.0); Lymphocytes % 12.6 % (21.2-54.2); Mean Corpuscular HGB Conc 33.1 GM/DL (32-36); Mean Corpuscular Volume 94.7 FL (87-102); Mean Platelet Volume 9.6 FL (9.6-12.0); Monocytes % 7.8 % (1.7-12.7); Neutrophils % 77.7 % (38.7-73.9); Platelet Count 557 T/CUMM (130-400); Red Blood Count 3.77 MC/CUMM (3.8-5.5); Red Cell Distribution Width 12.2 % (9.3-17.3); White Blood Count 25.8 T/CUMM (4-12)
[2019-04-07 05:03] LABS: ABG Base Excess 0.6 MMOL/L (-2.5-2.5); ABG HCO3 23.8 MMOL/L (20-26); ABG Oxygen Saturation 96.1 % (95-100); ABG PCO2 33.6 MM HG (35-48); ABG PH 7.468 (7.35-7.45); ABG PO2 84.8 MM HG (80-95); ABG TCO2 24.8 MMOL/L (23-27); Allen Test Positive
[2019-04-07] MEDS: POTASSIUM CHLORIDE 20 MEQ/15 ML UDCUP PER TUBE PRN ×2 (05:23→07:48)
[2019-04-07] MEDS: BUDESONIDE 0.5 MG/2 ML NEB RESP TX SCH ×2 (06:47→20:03)
[2019-04-07] MEDS: ASPIRIN CHEW 81 MG TABLET PO SCH (09:56)
[2019-04-07] MEDS: FOLIC ACID 1 MG TABLET PO SCH (09:56)
[2019-04-07] MEDS: MULTIVITAMIN (CENTRUM) TABLET PO SCH (09:56)
[2019-04-07] MEDS: METOPROLOL TARTRATE 25 MG TABLET PO SCH (09:57)
[2019-04-07] MEDS: THIAMINE 100 MG TABLET PO SCH (09:58)
[2019-04-07] MEDS: TICAGRELOR 90 MG TABLET PO SCH ×2 (09:59→21:04)
[2019-04-07] MEDS: LOSARTAN 25 MG TABLET PO SCH (09:59)
[2019-04-07] MEDS: ROSUVASTATIN 20 MG TABLET PO SCH (09:59)
[2019-04-07] MEDS: NICOTINE 14 MG/24 HR PATCH TRANSDERM SCH (10:00)
[2019-04-07] MEDS: ENOXAPARIN 40 MG/0.4 ML SYRINGE SUBCUT SCH (10:00)
[2019-04-07] MEDS: POTASSIUM CHLORIDE 20 MEQ TABLET PO SCH ×3 (10:02→18:09)
[2019-04-07] MEDS: LACTULOSE 20 GM/30 ML UDCUP NG SCH (10:03)
[2019-04-07] MEDS: QUEtiapine 25 MG TABLET PO SCH (10:03)
[2019-04-07] MEDS: PANTOPRAZOLE 40 MG VIAL IV SCH (10:03)
[2019-04-07] MEDS ORDERED: INFLUENZA VIRUS VACCINE 0.5 ML SYRINGE IM ONE (15:00)
[2019-04-07] MEDS: METOPROLOL SUCCINATE XL 25 MG TABLET PO SCH (21:04)
[2019-04-08 07:23] LABS: Basophils # 0.1 10*3/uL (0.0-0.2); Basophils % 0.5 % (0.0-0.8); Eosinophils # 0.4 10*3/uL (0.0-0.87); Eosinophils % 1.8 % (0.00-10.9); Hematocrit 34.7 VOL% (42.0-52.0); Hemoglobin 11.5 GM/DL (14.0-18.0); Immature Granulocytes % 0.9 %; Immature Granulocytes Absolute 0.22 #; Lymphocytes # 2.8 10*3/uL (1.4-4.0); Lymphocytes % 12.1 % (21.2-54.2); Mean Corpuscular HGB Conc 33.1 GM/DL (32-36); Mean Corpuscular Volume 94.3 FL (87-102); Mean Platelet Volume 9.6 FL (9.6-12.0); Monocytes % 8.1 % (1.7-12.7); Neutrophils % 76.6 % (38.7-73.9); Platelet Count 616 T/CUMM (130-400); Red Blood Count 3.68 MC/CUMM (3.8-5.5); White Blood Count 23.3 T/CUMM (4-12)
[2019-04-08 07:45] LABS: Calcium 8.7 MG/DL (8.5-10.1); Eosinophils 1 % (0-10); Hypochromasia 1+; Lymphocytes 12 % (20-55); Osmolality,Calculated 285.1 MOS/KG (273-304); Platelet Estimate Increased; Segmented Neutrophils 80 % (50-85); Total Cells Counted 100
[2019-04-08] MEDS: BUDESONIDE 0.5 MG/2 ML NEB RESP TX SCH ×2 (07:56→23:19)
[2019-04-08] MEDS: ROSUVASTATIN 20 MG TABLET PO SCH (08:16)
[2019-04-08] MEDS: THIAMINE 100 MG TABLET PO SCH (08:16)
[2019-04-08] MEDS: MULTIVITAMIN (CENTRUM) TABLET PO SCH (08:16)
[2019-04-08] MEDS: METOPROLOL SUCCINATE XL 25 MG TABLET PO SCH ×2 (08:16→21:06)
[2019-04-08] MEDS: LOSARTAN 25 MG TABLET PO SCH (08:16)
[2019-04-08] MEDS: TICAGRELOR 90 MG TABLET PO SCH ×2 (08:16→21:06)
[2019-04-08] MEDS: FOLIC ACID 1 MG TABLET PO SCH (08:16)
[2019-04-08] MEDS: ASPIRIN CHEW 81 MG TABLET PO SCH (08:16)
[2019-04-08] MEDS: PANTOPRAZOLE 40 MG TABLET PO SCH (08:16)
[2019-04-08] MEDS: NICOTINE 14 MG/24 HR PATCH TRANSDERM SCH (08:17)
[2019-04-09 06:05] LABS: Basophils # 0.1 10*3/uL (0.0-0.2); Basophils % 0.5 % (0.0-0.8); Eosinophils # 0.6 10*3/uL (0.0-0.87); Eosinophils % 3.2 % (0.00-10.9); Hematocrit 33.7 VOL% (42.0-52.0); Hemoglobin 11.2 GM/DL (14.0-18.0); Immature Granulocytes % 0.9 %; Immature Granulocytes Absolute 0.15 #; Lymphocytes # 2.5 10*3/uL (1.4-4.0); Lymphocytes % 14.2 % (21.2-54.2); Mean Corpuscular HGB Conc 33.2 GM/DL (32-36); Mean Corpuscular Volume 93.4 FL (87-102); Mean Platelet Volume 9.1 FL (9.6-12.0); Monocytes % 6.8 % (1.7-12.7); Neutrophils % 74.4 % (38.7-73.9); Platelet Count 641 T/CUMM (130-400); Red Blood Count 3.61 MC/CUMM (3.8-5.5); Red Cell Distribution Width 11.8 % (9.3-17.3); White Blood Count 17.5 T/CUMM (4-12)
[2019-04-09 06:52] LABS: Albumin 2.8 G/DL (3.4-5.0); Bilirubin,Total 0.4 MG/DL (0.2-1.0); Calcium 8.7 MG/DL (8.5-10.1); Osmolality,Calculated 281.4 MOS/KG (273-304); Total Protein 7.1 G/DL (6.4-8.3)
[2019-04-09] MEDS: BUDESONIDE 0.5 MG/2 ML NEB RESP TX SCH (07:28)
[2019-04-09] MEDS: ROSUVASTATIN 20 MG TABLET PO SCH (08:03)
[2019-04-09] MEDS: ASPIRIN CHEW 81 MG TABLET PO SCH (08:03)
[2019-04-09] MEDS: TICAGRELOR 90 MG TABLET PO SCH (08:03)
[2019-04-09] MEDS: THIAMINE 100 MG TABLET PO SCH (08:04)
[2019-04-09] MEDS: FOLIC ACID 1 MG TABLET PO SCH (08:04)
[2019-04-09] MEDS: METOPROLOL SUCCINATE XL 25 MG TABLET PO SCH (08:04)
[2019-04-09] MEDS: LOSARTAN 25 MG TABLET PO SCH (08:04)
[2019-04-09] MEDS: MULTIVITAMIN (CENTRUM) TABLET PO SCH (08:04)
[2019-04-09] MEDS: NICOTINE 14 MG/24 HR PATCH TRANSDERM SCH (08:04)
[2019-04-09] MEDS: PANTOPRAZOLE 40 MG TABLET PO SCH (08:04)
[2019-04-09 09:10] VITALS: BP 136/71
== END 2019-04-09 10:58 | disposition home or self-care (01) | DRG 246 ==
LOC: N.ED 11:50 → N.CC 12:52 → SUATTDRO 13:04 → N.EDINP 13:04 → N.CC 14:05 → N.2E 04-07 12:50
PROVIDERS: ADMIT Internal Medicine Cardiovascular Disease; ATTEND Family Medicine
PROC: CLCCHCL (ICD-10-PCS; 2019-03-28 13:45)